=== PATIENT | male | born 2000 | race Caucasian/White ===

== ENCOUNTER 2018-08-28 13:12 | Emergency (ER) | payer OTHER | END 2018-08-28 14:07 | disposition other institution (70) | LOC: ED 13:12 | DX: Z02.89 Encounter for other administrative examinations (principal) ==

== ENCOUNTER 2018-08-28 13:12 | Emergency (ER) | payer SELFPAY ==
[~2018-08-28] VITALS: Ht 190.5 cm; Wt 99.8 kg
[2018-08-28 13:16] VITALS: BP 128/74; Ht 190.5 cm; Wt 99.8 kg
== END 2018-08-28 14:07 | disposition other institution (70) ==
LOC: ED 13:12
DX: S80.812A Abrasion, left lower leg, initial encounter (principal); S80.811A Abrasion, right lower leg, initial encounter; S60.512A Abrasion of left hand, initial encounter; F11.20 Opioid dependence, uncomplicated; V89.2XXA Person injured in unspecified motor-vehicle accident, traffic, initial encounter; Y93.I9 Activity, other involving external motion; Y92.413 State road as the place of occurrence of the external cause; Y99.8 Other external cause status